=== PATIENT | female | born 1995 | race Caucasian/White ===

== ENCOUNTER 2021-03-22 12:30 | Emergency (ER) | payer OTHER ==
[~2021-03-22] VITALS: Ht 165.1 cm; Wt 93.0 kg
[2021-03-22 12:52] LABS: URINE BILIRUBIN NEGATIVE (Negative); URINE BLOOD NEGATIVE (Negative); URINE CLARITY CLEAR; URINE COLOR YELLOW; URINE GLUCOSE-RANDOM NEGATIVE (Negative); URINE KETONES NEGATIVE (Negative); URINE LEUKOCYTES TRACE (Negative); URINE NITRITE NEGATIVE (Negative); URINE PROTEIN NEGATIVE (Negative); URINE UROBILINOGEN 0.2 E.U./dl (0.2-1.0)
[2021-03-22 13:05] LABS: ABSOLUTE EOSINOPHILS 0.1 thou/uL (0.0-0.7); ABSOLUTE LYMPHOCYTES 1.9 thou/uL (0.8-5.3); ABSOLUTE MONOCYTES 0.6 thou/uL (0.0-1.2); ABSOLUTE NEUTROPHILS 3.7 thou/uL (1.6-8.1); BASOPHILS 0.4 %; HEMATOCRIT 40.3 % (37.0-47.0); HEMOGLOBIN 13.6 gm/dL (12.0-15.0); LYMPHOCYTES 30.5 %; MCH 27.3 pg (26.0-34.0); MCHC 33.8 g/dL (28.0-37.0); MCV 80.8 fL (80.0-100.0); MONOCYTES 8.8 %; MPV 8.3 fl. (7.2-11.1); NUCLEATED RBCS 0 /100WBC; PLATELET COUNT* 222 thou/uL (150-400); POLYS 59.3 %; RBC 4.98 mil/uL (4.20-5.00); RDW-CV 15.2 % (10.5-14.5); WBC 6.3 thou/uL (4.0-11.0)
[2021-03-22 13:13] LABS: CALCIUM 9.4 mg/dL (8.5-10.1); POTASSIUM 3.6 mmol/L (3.5-5.1)
[2021-03-22 13:17] LABS: ALBUMIN 4.4 g/dL (3.4-5.0); TOTAL BILIRUBIN 0.8 mg/dL (<0.1-1.0); TOTAL PROTEIN 7.9 g/dL (6.4-8.2)
[2021-03-22 14:43] VITALS: BP 134/85
--- NOTE | 2021-03-23 11:15 | EKG ---
[place] [address] ELECTROCARDIOGRAM REPORT Name: KENDRA NGUYEN Alanis Room: [facility]#: [id number] Admission: 03/22/21 Attend Phys: Discharge: 03/22/21 Date of : 89 Date of Service: 03/22/21 1241 Report #: [id number] THIS REPORT FOR: //name// [facility] ED Test Date: 2021-03-22 Test Time: 12:41:31 Pat Name: KENDRA NGUYEN Department: Room: Gender: Grad Intern: : 1995 Requested By: Vaishnavi Zheng Order Number: [id number] MD: Jovan Pettit Measurements Intervals [place] Rate: 90 P: 38 CT: 109 QRS: 61 QRSD: 92 T: 13 QT: 351 QTc: 430 Interpretive Statements Sinus rhythm nonspecific t wave changes Short CT interval No previous ECG available for comparison Electronically Signed On 03-23-2021 11:15:12 [employer]PPORT [employer]IST by Jovan Pettit [email or web address] <ELECTRONICALLY SIGNED> By: Jovan Pettit MD, [facility] 03/23/21 1115 1241 1241 Jovan Pettit MD, FAC /EPI
== END 2021-03-22 14:44 | disposition home or self-care (01) ==
LOC: M.ERS 12:30
PROVIDERS: Student in an Organized Health Care Education/Training Program
DX: R07.89 Other chest pain (principal); M54.6 Pain in thoracic spine; R10.12 Left upper quadrant pain; R10.11 Right upper quadrant pain; R10.13 Epigastric pain; Z88.1 Allergy status to other antibiotic agents; Z88.8 Allergy status to other drugs, medicaments and biological substances